=== PATIENT | female | born 1945 | race Hispanic/Latino ===

== ENCOUNTER → 2017-06-01 | Outpatient (CLI) | payer MEDICARE ==
[~2017-06-01] MED LIST: ACET-66 PO; ASPI-555 PO; CARV12.580 PO; GABA-531 PO; GLIP10TA9 PO; INSU100I21 SQ; LOSA25TA21 PO; MULT-1258 PO; OMEP20CA10 PO; PREG50 PO; ROSU20TA PO; victoza SQ; vitamin d PO
== END | disposition home or self-care (01) ==
LOC: RAH 13:11
PROVIDERS: ATTEND Family Medicine
DX: M41.85 Other forms of scoliosis, thoracolumbar region (principal); M54.16 Radiculopathy, lumbar region
CPT/HCPCS: 72100

== ENCOUNTER → 2017-08-06 | Outpatient (CLI) | payer MEDICARE | END | disposition home or self-care (01) | LOC: RAH 09:01 | PROVIDERS: ATTEND Family Medicine | DX: Z12.31 Encounter for screening mammogram for malignant neoplasm of breast (principal) | CPT/HCPCS: 77067 ==

== ENCOUNTER → 2017-08-16 | Outpatient (CLI) | payer MEDICARE | END | disposition home or self-care (01) | LOC: OIH 10:42 | PROVIDERS: ATTEND Family Medicine | DX: M47.894 Other spondylosis, thoracic region (principal) | CPT/HCPCS: 72070 ==

== ENCOUNTER 2017-09-30 21:42 | Emergency (ER) | payer MEDICARE ==
[2017-09-30] MEDS ORDERED: CEFTRIAXONE SODIUM 1 GM ONE (22:36)
[2017-09-30] MEDS ORDERED: LIDOCAINE HCL-MPF 1% 2ML VIAL ONE (22:36)
== END 2017-09-30 23:05 | disposition home or self-care (01) ==
LOC: EDH 21:42
DX: H00.025 Hordeolum internum left lower eyelid (principal); H00.035 Abscess of left lower eyelid; E78.5 Hyperlipidemia, unspecified; I10 Essential (primary) hypertension; E11.9 Type 2 diabetes mellitus without complications
CPT/HCPCS: 96372; 99283; J0696; J3490

== ENCOUNTER → 2017-10-17 | Outpatient (CLI) | payer MEDICARE | END | disposition home or self-care (01) | LOC: SHCH 14:46 | PROVIDERS: ATTEND Internal Medicine Cardiovascular Disease | DX: I10 Essential (primary) hypertension (principal); I67.9 Cerebrovascular disease, unspecified | CPT/HCPCS: 93306 ==

== ENCOUNTER → 2017-10-23 | Outpatient (CLI) | payer MEDICARE ==
[~2017-10-23] MED LIST changes: +REGADENOSON 0.4 MG/5 ML PF SYG IVP SCH
== END | disposition home or self-care (01) ==
LOC: SHCH 08:49
PROVIDERS: ATTEND Internal Medicine Cardiovascular Disease
DX: I10 Essential (primary) hypertension (principal); I67.9 Cerebrovascular disease, unspecified
CPT/HCPCS: 78452; 93017; 96374; A9500 ×2; J2785

== ENCOUNTER → 2018-07-12 | Outpatient (CLI) | payer MEDICARE, OTHER ==
[~2018-07-12] MED LIST changes: -LOSA25TA21 PO; +LOSA25TA41 PO; -REGADENOSON 0.4 MG/5 ML PF SYG IVP SCH
== END | disposition home or self-care (01) ==
LOC: RAH 07:51
PROVIDERS: ATTEND Family Medicine
DX: R10.11 Right upper quadrant pain (principal)
CPT/HCPCS: 76705

== ENCOUNTER → 2019-01-01 | Outpatient (CLI) | payer OTHER ==
[~2019-01-01] MED LIST changes: +OMEP-50 PO; -OMEP20CA10 PO; -ROSU20TA PO; +ROSU20TA23 PO
== END | disposition home or self-care (01) ==
LOC: RAH 07:19
PROVIDERS: ATTEND Family Medicine
DX: Z12.31 Encounter for screening mammogram for malignant neoplasm of breast (principal)
CPT/HCPCS: 77067

== ENCOUNTER → 2019-04-22 | Outpatient (CLI) | payer OTHER ==
[~2019-04-22] MED LIST changes: -OMEP-50 PO; +OMEP20CA12 PO
== END | disposition home or self-care (01) ==
LOC: RAH 14:40
PROVIDERS: ATTEND Internal Medicine
DX: N18.4 Chronic kidney disease, stage 4 (severe) (principal)
CPT/HCPCS: 76770

== ENCOUNTER → 2019-10-31 | Outpatient (CLI) | payer OTHER ==
[~2019-10-31] MED LIST changes: -ASPI-555 PO; +ASPI-556 PO
== END | disposition home or self-care (01) ==
LOC: RAH 09:40
PROVIDERS: ATTEND Internal Medicine
DX: K76.0 Fatty (change of) liver, not elsewhere classified (principal); Z90.5 Acquired absence of kidney
CPT/HCPCS: 76700

== ENCOUNTER → 2021-08-31 | Outpatient (CLI) | payer OTHER ==
[~2021-08-31] MED LIST changes: +REGADENOSON 0.4 MG/5 ML PF SYG IVP SCH
== END | disposition home or self-care (01) ==
LOC: RAH 09:12
PROVIDERS: ATTEND Internal Medicine
DX: R07.9 Chest pain, unspecified (principal); E11.65 Type 2 diabetes mellitus with hyperglycemia; I70.0 Atherosclerosis of aorta; G47.33 Obstructive sleep apnea (adult) (pediatric)
CPT/HCPCS: 78452; 93017; 96374; A9500 ×2; J2785

== ENCOUNTER → 2024-02-06 | Outpatient (CLI) | payer OTHER, MEDICARE ==
[~2024-02-06] MED LIST changes: +GLIP10TA16 PO; -GLIP10TA9 PO; -INSU100I21 SQ; +INSU100I22 SQ; -REGADENOSON 0.4 MG/5 ML PF SYG IVP SCH
== END | disposition home or self-care (01) ==
LOC: RAH 10:12
PROVIDERS: ATTEND Family Medicine
DX: I08.0 Rheumatic disorders of both mitral and aortic valves (principal); R79.89 Other specified abnormal findings of blood chemistry
CPT/HCPCS: 93306

== ENCOUNTER 2024-07-15 18:48 | Inpatient (IN) | payer MEDICARE ==
[~2024-07-15] VITALS: Ht 154.9 cm; Wt 93.8 kg
[~2024-07-15 18:48] MED LIST changes: -ACET-66 PO; -ASPI-556 PO; -CARV12.580 PO; +CARV6.25 PO; +CHOL100046 PO; +CLON0.1T2 PO; +EMPA10TA PO; +FURO20TA4 PO; -GABA-531 PO; -GLIP10TA16 PO; +HYDR25 PO; +INSLAN SQ; -INSU100I22 SQ; +LOPE2CAP PO; -LOSA25TA41 PO; -MULT-1258 PO; -OMEP20CA12 PO; -PREG50 PO; +ROSU10TA72 PO; -ROSU20TA23 PO; +SERT-439 PO; +SODI650T PO; +SODPOLY15G PO; +VITAMIN B12 PO; -victoza SQ; -vitamin d PO
--- NOTE | 2024-07-15 18:59 | ERN ---
ED Note History of Present Illness Stated Complaint: DIALYSIS ACCESS PROBLEM Chief Complaint: Dialysis Problem Time Seen by MD: 18:51 Dictation: PATIENT IS A 79-YEAR-OLD FEMALE HERE WITH COMPLAINTS OF ACCIDENTALLY PULLING OUT HER RIGHT CHEST PERMCATH THIS AFTERNOON WHILE SHE WAS TAKING A NAP. NO ACTIVE BLEEDING AT THIS TIME. PATIENT HAS A HISTORY OF ESRD WITH HEMODIALYSIS Sunday AND SUNDAY LAST HEMODIALYSIS WAS YESTERDAY. PATIENT OF DR. WINN. Allergies: Coded Allergies: No Known Drug Allergies (Verified Allergy, Unknown, 02/17/14) Home Meds Active Scripts Hydralazine HCl (Apresoline) 25 Mg Tab, 50 MG PO TID, #90 TAB Prov:IAN CORTEZ N GERMAN TEACHER 04/28/24 Clonidine HCl (Catapress) 0.1 Mg Tab, 0.1 MG PO Q6H PRN for IF SBP GREATER THAN 160, #30 TAB Prov:IAN CORTEZ N GERMAN TEACHER 04/28/24 Reported Medications [Vitamin B12] No Conflict Check, 1000 MCG PO DAILY 04/24/24 Cholecalciferol (Vitamin D3) (Vitamin D3) 25 Mcg (1000 Unit) Capsule, 1 CAP PO DAILY for 30 Days, #30 CAP 0 Refills 04/24/24 Sodium Polystyrene Sulfonate (Kayexalate 15 gm/60 ml) 15 Gram-20 Gram/60 Ml Oral.susp, 60 ML PO DAILY for 1 Day, #60 ML 0 Refills 04/24/24 Sodium Bicarbonate (Sodium Bicarbonate) 650 Mg Tablet, 1 TAB PO DAILY for indigestion for 30 Days, #60 TAB 0 Refills 04/24/24 Loperamide HCl (Imodium 2 mg Cap) 2 Mg Capsule, 2 MG PO DAILY PRN for DIARRHEA, CAP 04/24/24 Insulin Glargine,Hum.rec.anlog (Lantus) 100 Unit/Ml Inj, 50 UNITS SQ DAILY, ML 04/24/24 Furosemide (Furosemide) 20 Mg Tablet, 1 TAB PO DAILY for 30 Days, #30 TAB 0 Refills 04/24/24 Empagliflozin (Jardiance) 10 Mg Tablet, 1 TAB PO DAILY for 30 Days, #30 TAB 0 Refills 04/24/24 Carvedilol (Carvedilol) 6.25 Mg Tablet, 1 TAB PO BID for 30 Days, #60 TAB 0 Refills 04/24/24 Sertraline HCl (Sertraline HCl) 50 Mg Tablet, 1 TAB PO DAILY for 30 Days, #30 TAB 0 Refills 04/24/24 Rosuvastatin Calcium (Rosuvastatin Calcium) 10 Mg Tablet, 2 TAB PO DAILY for 30 Days, #30 TAB 0 Refills 04/24/24 Past Medical History Past Medical History: CHF, Depression, Diabetes-Type II, High Cholesterol, Hypertension, Renal Disese, Renal Failure Surgical History: None History: Not Applicable RN Note Reviewed/Agreed w/PFSH: Yes Review of System Dictation CONSTITUTIONAL: NEGATIVE EXCEPT FOR HPI HEAD/FACE: NEGATIVE EXCEPT FOR HPI EENT: NEGATIVE EXCEPT FOR HPI RESPIRATORY: NEGATIVE EXCEPT FOR HPI GASTROINTESTINAL/ABDOMINAL: NEGATIVE EXCEPT FOR HPI GENITOURINARY: NEGATIVE EXCEPT FOR HPI MUSCULOSKELETAL: NEGATIVE EXCEPT FOR HPI INTEGUMENTARY: NEGATIVE EXCEPT FOR HPI NEUROLOGICAL/PSYCH: NEGATIVE EXCEPT FOR HPI HEMATOLOGIC/LYMPHATIC: NEGATIVE EXCEPT FOR HPI ALL SYSTEMS NEGATIVE, EXCEPT NOTED ABOVE. 13 POINT REVIEW OF SYSTEMS ASSESSED AND ALL NEGATIVE EXCEPT FOR ABOVE. Initial Vital Sign VS Vital Signs Date Time Temp Pulse Resp B/P (MAP) Pulse Ox O2 Delivery O2 Flow Rate FiO2 07/15/24 18:50 98.2 63 20 141/62 99 Room Air Physical Exam Dictation VITAL SIGNS REVIEWED GENERAL APPEARANCE: ALERT, ORIENTED X 3, NO ACUTE DISTRESS, WELL DEVELOPED, NOURISHED. HEAD AND FACE: NON-TRAUMATIC. EYES: PERRL, PINK CONJUNCTIVAS, EYELID NO TRAUMA, ANTERIOR CHAMBER WITH ARCUS SENILIS. EARS: PINNAS INTACT AND NO SIGNS OF TRAUMA OR ERYTHEMA EAR CANALS CLEAR AND NO DISCHARGE TM NO ERYTHEMA NOSE: NO DISCHARGE, NO BLEEDING. OROPHARYNX: MOUTH NORMAL, TONGUE PINK, PHARYNX CLEAR,NO ERYTHEMA, TONSILS NO EXUDATES, NO ABSCESSES NOTED, MUCOUS MEMBRANE MOIST NECK: SUPPLE, NON-TENDER, NO THYROMEGALY, NO MASSES, NO JVD, NO BRUITS BREAST:DEFERRED CHEST:NO TENDERNESS, NO CREPITUS, NO PARADOXICAL MOVEMENT, NO RETRACTIONS LUNGS:CLEAR, WELL-VENTILATED, SYMMETRIC, NO RALES, NO WHEEZING, NO RHONCHI, NO STRIDOR, GOOD BREATH SOUNDS BILATERALLY HEART: REGULAR RATE, REGULAR RHYTHM, NO MURMUR, NO GALLOPS VASCULAR: NO PERIPHERAL EDEMA, ABDOMEN: SOFT, POSITIVE BOWEL SOUNDS, NONDISTENDED, NO GUARDING, NONTENDER, NO REBOUND, NO MASSES NO HEPATOMEGALY, NO SPLENOMEGALY, NO CORDERO'S SIGN, NO HERNIAS. RECTAL: DEFERRED GENITAL: DEFERRED NEUROLOGICAL: NORMAL SPEECH, MOTOR FUNCTION INTACT, SENSORY FUNCTION INTACT MUSCULOSKELETAL: NECK NONTENDER, FULL RANGE OF MOTION, BACK NONTENDER, FULL RANGE OF MOTION, EXTREMITIES: NONTENDER, FULL RANGE OF MOTION SKIN: COLOR PINK, DRY, NO TURGOR, NO RASH, NO LACERATIONS, NO ABRASIONS, NO CONTUSIONS. LYMPHATIC: DEFERRED Results (Laboratory/Radiology) Laboratory/Radiology Laboratory Tests Test 07/15/24 19:13 White Blood Count 8.7 K/uL (4.8-10.8) Red Blood Count 3.65 MIL/uL (4.00-5.50) L Hemoglobin 11.2 g/dL (12.0-16.0) L Hematocrit 34.3 % (36-48) L Mean Corpuscular Volume 94.0 fL (79-99) Mean Corpuscular Hemoglobin 30.7 pg (27.0-33.0) Mean Corpuscular Hemoglobin Concent 32.7 g/dL (32.0-36.0) Red Cell Distribution Width 12.7 % (11.0-15.5) Platelet Count 201 K/uL (130-400) Mean Platelet Volume 10.1 fL (7.5-10.5) Immature Granulocyte % (Auto) 0.5 % (0-1) Neutrophils (%) (Auto) 64.0 % (40.0-77.0) Lymphocytes (%) (Auto) 24.1 % (21.0-51.0) Monocytes (%) (Auto) 8.4 % (3.0-13.0) Eosinophils (%) (Auto) 2.4 % (0.0-8.0) Basophils (%) (Auto) 0.6 % (0.0-5.0) Neutrophils # (Auto) 5.6 K/uL (1.8-7.7) Lymphocytes # (Auto) 2.1 K/uL (1.0-4.8) Monocytes # (Auto) 0.7 K/uL (0.1-1.0) Eosinophils # (Auto) 0.21 K/uL (0.00-0.70) Basophils # (Auto) 0.05 K/uL (0.00-0.20) Absolute Immature Granulocyte (auto 0.04 K/uL (0-1) Nucleated Red Blood Cells 0.0 % (0.0-0.19) Prothrombin Time 10.2 SEC (9.6-11.6) Prothromb Time International Ratio 0.96 (0.85-1.15) Activated Partial Thromboplast Time 25.6 SEC (26.3-35.5) L Sodium Level 141 mmol/L (136-145) Potassium Level 3.6 mmol/L (3.5-5.1) Chloride Level 102 mmol/L (101-111) Carbon Dioxide Level 34 mmol/L (21-32) H Blood Urea Nitrogen 56 mg/dL (7-18) H Creatinine 4.2 mg/dL (0.5-1.0) H Glomerular Filtration Rate Calc 10 mL/min (>90) Random Glucose 117 mg/dL (70-105) H Total Calcium 8.3 mg/dL (8.5-10.1) L PORTABLE CHEST RADIOGRAPH INDICATION: SHORTNESS A BREATH/END-STAGE RENAL DISEASE COMPARISON: 04/25/2024 FINDINGS: Heart size is normal. Mild calcific plaque is present along the aortic arch ng. The pulmonary vascularity and wendy appear normal. No abnormal pulmonary parenchymal opacity or consolidation identified. No significant pleural effusion noted. No pneumothorax detected. IMPRESSION: No radiographic evidence for any acute cardiopulmonary process. Labs Reviewed?: Yes EKG Comment: EKG sinus bradycardia/ 58/GA [id number] millisecond/right bundle branch block ED Course ED Course Orders Procedure Category Date Status Time Pt And Ptt LAB 07/15/24 Complete 18:54 Cbc With Differential LAB 07/15/24 Complete 18:54 12 Lead Ekg Tracing- EKG 07/15/24 Complete Technical 18:54 Chest 1vw RAD 07/15/24 Resulted 18:54 Basic Metabolic Panel LAB 07/15/24 Complete 18:54 Vital Signs Date Time Temp Pulse Resp B/P (MAP) Pulse Ox O2 Delivery O2 Flow Rate FiO2 07/15/24 18:50 98.2 63 20 141/62 99 Room Air 2039/labs unremarkable and patient hemodynamically stable. We will follow up with hospitalist have patient admitted for PermCath replacement tomorrow X-ray 2044/spoke with Dr. REINOSO, reviewed EKG labs chest x-ray. He agreed to admit patient Medical Decision Making MDM MDM: Differential diagnosis: Electrolyte imbalance/dehydration/fluid overload/anemia of chronic renal failure Rationale: Tests considered and ordered secondary to shared decision making include: labs, ECG and radiology Previous outside records reviewed: Old ER visits. Reviewed Risk of complication and/or morbidity or mortality of patient management: None Medications-Per medication reconciliation Need for hospitalization: Patient does meet criteria for hospitalization. Patient will need admission for PermCath placement in the morning and possible dialysis Need for emergency major/minor surgery: No There are no social concerns with this patient. Prescription drug management Prescriptions will include symptomatic care Patient's prior external medical records from other ER visits were reviewed by me as indicated. Prior testing and results from previous visits were reviewed. Prior tests were taken into account with medical decision making and resource utilization, independent historian/historians were used to obtain complete medical history. I independently interpreted the test that were performed, results were reviewed by me and considered findings on radiology if ordered. Medical management and examination interpretation discussions were had by me with other qualified healthcare professionals as indicated for the patient's care. DX & DISP Disposition: Inpatient Decision to Admit Time: 20:43 Departure Impression: Primary Impression: Hemodialysis catheter dysfunction Additional Impressions: Anemia of chronic kidney failure, Uncontrolled diabetes mellitus, Hypocalcemia, ESRD (end stage renal disease) on dialysis Condition: Stable Referrals: SHAMAR BENJAMIN MD (PCP) Time of Disposition: 20:43 I have reviewed the case, and I agree with, Diagnosis and Plan ADELINE PACKER NP Jul 15, 2024 18:59
--- NOTE | 2024-07-15 19:08 | EKG ---
[facility] Test Date: 2024-07-15 Test Time: 19:06:51 Pat Name: CHEVY MILLS Department: ED Room: 330 Gender: F Welder Journeyman: [id number] : 1945 Requested By: ADELINE PACKER Order Number: [id number] Reading MD: Diego Mills Measurements Intervals Myton Rate: 58 P: -19 OR: 214 QRS: -161 QRSD: 143 T: 10 QT: 476 QTc: 469 Interpretive Statements Sinus rhythm Borderline prolonged OR interval Right bundle branch block Compared to ECG 04/23/2024 11:16:59 No significant changes Electronically Signed On 07-15-2024 23:39:13 CDT by Diego Mills Please click the below link to view image of tracing.
[2024-07-15 19:26] LABS: CREATININE 4.2 mg/dL (0.5-1.0); POTASSIUM 3.6 mmol/L (3.5-5.1)
[2024-07-15 19:29] LABS: INR 0.96 (0.85-1.15); PROTHROMBIN TIME 10.2 SEC (9.6-11.6)
[2024-07-15 19:30] LABS: PARTIAL THROMBOPLASTIN TIME 25.6 SEC (26.3-35.5)
[2024-07-15 19:34] LABS: BASOPHILS # (AUTO) 0.05 K/uL (0.00-0.20); BASOPHILS % (AUTO) 0.6 % (0.0-5.0); EOSINOPHILS # (AUTO) 0.21 K/uL (0.00-0.70); EOSINOPHILS % (AUTO) 2.4 % (0.0-8.0); HEMATOCRIT 34.3 % (36-48); IMMATURE GRANULOCYTE ABSOLUTE 0.04 K/uL (0-1); LYMPHOCYTES # (AUTO) 2.1 K/uL (1.0-4.8); LYMPHOCYTES % (AUTO) 24.1 % (21.0-51.0); MEAN CORPUSCULAR HEMOGLOBIN 30.7 pg (27.0-33.0); MEAN CORPUSCULAR HGB CONC 32.7 g/dL (32.0-36.0); MONOCYTES # (AUTO) 0.7 K/uL (0.1-1.0); MONOCYTES % (AUTO) 8.4 % (3.0-13.0); NEUTROPHILS # (AUTO) 5.6 K/uL (1.8-7.7); PLATELET COUNT (AUTO) 201 K/uL (130-400); RED BLOOD CELL COUNT(AUTO) 3.65 MIL/uL (4.00-5.50); RED CELL DISTRIBUTION WIDTH 12.7 % (11.0-15.5); WHITE BLOOD COUNT (AUTO) 8.7 K/uL (4.8-10.8)
--- NOTE | 2024-07-15 20:01 | HMCIMG ---
PORTABLE CHEST RADIOGRAPH INDICATION: SHORTNESS A BREATH/END-STAGE RENAL DISEASE COMPARISON: 04/25/2024 FINDINGS: Heart size is normal. Mild calcific plaque is present along the aortic arch ng. The pulmonary vascularity and wendy appear normal. No abnormal pulmonary parenchymal opacity or consolidation identified. No significant pleural effusion noted. No pneumothorax detected. IMPRESSION: No radiographic evidence for any acute cardiopulmonary process.
[2024-07-15] MEDS ORDERED: ondanSETRON 4MG TABLET PO PRN (21:00)
[2024-07-15] MEDS: INSULIN LISpro 100 UNIT/ML 3ML SQ SCH (21:00)
[2024-07-15] MEDS ORDERED: FOLI1TAB85 PO (22:20)
[2024-07-15] MEDS ORDERED: INSU3INS3 SQ (22:20)
[2024-07-15] MEDS ORDERED: CARV6.25 PO (22:20)
[2024-07-15] MEDS ORDERED: ROSU10TA72 PO (22:20)
[2024-07-15] MEDS ORDERED: HYDR50TA PO (22:20)
[2024-07-15] MEDS ORDERED: SERT-439 PO (22:20)
[2024-07-15 23:05] VITALS: BP 169/76; PULSE 59; RESP 17; TEMP 98.1
[2024-07-15 23:10] VITALS: O2SAT 96
[2024-07-16] VITALS (26 sets, daily range): BP systolic 84–171; BP diastolic 37–79; PULSE 61–88; RESP 16–20; TEMP 97.6–98.6; O2SAT 90–96
[2024-07-16 03:18] LABS: BASOPHILS # (AUTO) 0.03 K/uL (0.00-0.20); BASOPHILS % (AUTO) 0.4 % (0.0-5.0); EOSINOPHILS # (AUTO) 0.16 K/uL (0.00-0.70); EOSINOPHILS % (AUTO) 2.2 % (0.0-8.0); HEMATOCRIT 31.8 % (36-48); IMMATURE GRANULOCYTE ABSOLUTE 0.02 K/uL (0-1); LYMPHOCYTES # (AUTO) 1.8 K/uL (1.0-4.8); LYMPHOCYTES % (AUTO) 25.1 % (21.0-51.0); MEAN CORPUSCULAR HEMOGLOBIN 29.8 pg (27.0-33.0); MEAN CORPUSCULAR HGB CONC 32.4 g/dL (32.0-36.0); MEAN CORPUSCULAR VOLUME 91.9 fL (79-99); MONOCYTES # (AUTO) 0.6 K/uL (0.1-1.0); MONOCYTES % (AUTO) 8.8 % (3.0-13.0); NEUTROPHILS # (AUTO) 4.6 K/uL (1.8-7.7); NEUTROPHILS % (AUTO) 63.2 % (40.0-77.0); PLATELET COUNT (AUTO) 162 K/uL (130-400); RED BLOOD CELL COUNT(AUTO) 3.46 MIL/uL (4.00-5.50); RED CELL DISTRIBUTION WIDTH 12.8 % (11.0-15.5); WHITE BLOOD COUNT (AUTO) 7.3 K/uL (4.8-10.8)
[2024-07-16 03:33] LABS: CREATININE 4.1 mg/dL (0.5-1.0); MAGNESIUM 2.5 mg/dL (1.80-2.40); PHOSPHORUS 6.1 mg/dL (2.5-4.9); POTASSIUM 3.5 mmol/L (3.5-5.1)
[2024-07-16 03:42] LABS: HEMOGLOBIN A1C 7.3 % (4.0-6.0)
[2024-07-16] MEDS: carVEDIlol 6.25 MG TABLET PO SCH (09:00)
[2024-07-16] MEDS ORDERED: hydroCHLOROthiazide 25 MG TABLET PO SCH (09:00)
--- NOTE | 2024-07-16 10:19 | CONS ---
NEPHROLOGY CONSULTATION REASON FOR CONSULTATION: End-stage renal disease, requiring hemodialysis, dislodged dialysis catheter. HISTORY OF PRESENT ILLNESS: The patient is a 79-year-old female with recently initiated on hemodialysis secondary to end-stage renal disease from diabetic nephropathy, history of type 2 diabetes, hypertension, who presents after noticing dialysis catheter had been dislodged. The patient reports she was in her usual state of health, noticed blood stains on her clothes and noticed catheter had fallen out. Denies any trauma. Otherwise, the patient dialyzes Sunday, Sunday and Sunday and has been adherent with her treatments. Nephrology has been consulted for assistance with replacement of dialysis catheter as well as to proceed with dialysis during hospitalization. The patient was evaluated in her room this morning. Denies any blood loss from catheter insertion site. Otherwise, no fevers, chills, nausea, vomiting. REVIEW OF SYSTEMS: CONSTITUTIONAL: Denies any fevers, chills. EYES: Denies any changes to her vision. EARS: Denies any ear pain or discharge. NOSE AND THROAT: No congestion or sore throat. PULMONARY: Denies any cough, wheezing, shortness of breath. CARDIOVASCULAR: Denies any chest pain, palpitation, orthopnea or PND. GASTROINTESTINAL: Denies abdominal pain, nausea or vomiting. MUSCULOSKELETAL: Denies any erythematous joints or swollen joints. HEMATOLOGY: Acute blood loss after dialysis catheter was dislodged, but none currently. GENITOURINARY: Denies any gross hematuria. NEUROLOGIC: Denies any focal weakness or syncope. PSYCHIATRIC: Denies anxiety, depression. PAST MEDICAL HISTORY: End-stage renal disease, on hemodialysis, type 2 diabetes, hypertension, hyperlipidemia, depression, history of right nephrectomy, morbid obesity. PAST SURGICAL HISTORY: Nephrectomy dialysis catheter placement. FAMILY HISTORY: Positive for heart disease, diabetes, kidney failure. SOCIAL HISTORY: Nonsmoker, no alcohol use, has good family support. ALLERGIES: ADVERSE EVENTS REPORTED TO GABAPENTIN. CURRENT MEDICATIONS: Have been reviewed. PHYSICAL EXAMINATION: CURRENT VITAL SIGNS: Temperature 98.4, pulse 75, blood pressure 119/59, respiratory rate is 16, satting 91%, currently on room air. GENERAL: The patient is resting comfortably. She is alert, she is oriented, nontoxic appearing. HEENT: Anicteric sclerae. NECK: Supple. Flat JVD. CARDIAC: Regular rhythm and rate. CHEST: Clear. Right upper chest wall from previous dialysis catheter insertion, no evidence of bleeding, no discharge, no drainage ABDOMEN: Soft, nontender. EXTREMITIES: No edema. LABORATORY DATA: White count is 7.3, hemoglobin 10.3, hematocrit 31.8, platelet count is 162. Sodium 145, potassium is 3.5, chloride 106, bicarbonate is 31, BUN is 58, creatinine is 4.1, calcium is 8.4, hemoglobin A1c 7.3, phosphorus is 6.1, magnesium is 2.5. ASSESSMENT: * End-stage renal disease, on chronic hemodialysis. * Dislodged dialysis catheter. * Hypokalemia. * Hypertension. * History of type 2 diabetes. * History of right nephrectomy. * Hyperlipidemia. * Anemia of chronic kidney disease. * Hyperphosphatemia. PLAN: * End-stage renal disease. Plan for dialysis today per routine schedule. Once dialysis catheter was replaced increase to 3K bath, 2.5 calcium bath, UF 1 liter only as tolerated, 300 blood flow rate, 600 dialysate flow rate. The patient will continue routine dialysis throughout hospitalization every Sunday, Sunday and Sunday. Continue renal diet and fluid restriction. * Dislodged dialysis catheter. IR consult to replace a tunneled dialysis catheter. The patient has been referred for outpatient access placement. * Hypokalemia. Increase to 3K bath today and liberalize potassium in diet. * Hypertension. Resume home medications. Stable at this time. * Type 2 diabetes, moderate coverage diabetic diet. * Anemia of chronic kidney disease. We will hold Epogen at this time given stable labs. * Hyperphosphatemia. Resume binders, renal diet. TID: [id number] RECEIPT: [id number]
[2024-07-16] MEDS ORDERED: HEParin 1,000 UNIT VIAL ONE (11:29)
[2024-07-16] MEDS ORDERED: HEParin-NS 1,000 UNIT/500 ML 500 ML IV ONE (11:29)
[2024-07-16] MEDS ORDERED: LIDOCAINE HCL 400MG/20ML VIAL ONE (11:30)
[2024-07-16] MEDS ORDERED: hydrALAZine 20MG/ML VIAL ONE (11:58)
[2024-07-16] MEDS ORDERED: HEParin 5,000 UNIT VIAL IRRIG SCH (14:00)
[2024-07-16] MEDS: 0.9%NACL 1000ML 1,000 ML IV SCH (16:08)
--- NOTE | 2024-07-16 17:24 | PN ---
INFECTIOUS DISEASE PROGRESS NOTE SUBJECTIVE: [ ] PHYSICAL EXAM EYES: Anicteric. Pupils equal and reactive. HENT: No oral thrush seen, moist Oral mucosa NECK: Supple, no JVD or thyromegaly. LUNGS: Good air entry. No rales, no rhonchi. CARDIOVASCULAR: S1, S2 regular. No murmur heard. ABDOMEN: Soft, non tender, bowel sounds present, no organomegaly CENTRAL NERVOUS SYSTEM: Awake, alert, oriented x 3. No focal deficits. SKIN: No rashes, no swelling. LYMPHATICS: No peripheral lymphadenopathy MUSCULOSKELETAL: No joint swelling, erythema or tenderness. EXTREMITIES: No cyanosis or clubbing BACK: No deformity, no pressure ulcer. GENITOURINARY: No dysuria or hematuria LABS: Laboratory: Test 07/16/24 15:45 07/16/24 03:12 07/15/24 19:13 Range/Units Whole Blood Glucose 126 H 70-110 MG/DL White Blood Count 7.3 4.8-10.8 K/uL Red Blood Count 3.46 L 4.00-5.50 MIL/uL Hemoglobin 10.3 L 12.0-16.0 g/dL Hematocrit 31.8 L 36-48 % Mean Corpuscular Volume 91.9 79-99 fL Mean Corpuscular Hemoglobin 29.8 27.0-33.0 pg Mean Corpuscular Hemoglobin Concent 32.4 32.0-36.0 g/dL Red Cell Distribution Width 12.8 11.0-15.5 % Platelet Count 162 130-400 K/uL Mean Platelet Volume 10.3 7.5-10.5 fL Immature Granulocyte % (Auto) 0.3 0-1 % Neutrophils (%) (Auto) 63.2 40.0-77.0 % Lymphocytes (%) (Auto) 25.1 21.0-51.0 % Monocytes (%) (Auto) 8.8 3.0-13.0 % Eosinophils (%) (Auto) 2.2 0.0-8.0 % Basophils (%) (Auto) 0.4 0.0-5.0 % Neutrophils # (Auto) 4.6 1.8-7.7 K/uL Lymphocytes # (Auto) 1.8 1.0-4.8 K/uL Monocytes # (Auto) 0.6 0.1-1.0 K/uL Eosinophils # (Auto) 0.16 0.00-0.70 K/uL Basophils # (Auto) 0.03 0.00-0.20 K/uL Absolute Immature Granulocyte (auto 0.02 0-1 K/uL Nucleated Red Blood Cells 0.0 0.0-0.19 % Sodium Level 145 136-145 mmol/L Potassium Level 3.5 3.5-5.1 mmol/L Chloride Level 106 101-111 mmol/L Carbon Dioxide Level 31 21-32 mmol/L Blood Urea Nitrogen 58 H 7-18 mg/dL Creatinine 4.1 H 0.5-1.0 mg/dL Glomerular Filtration Rate Calc 11 >90 mL/min Random Glucose 99 70-105 mg/dL Hemoglobin A1c 7.3 H 4.0-6.0 % Estimated Average Glucose (eAG) 163 H 70-126 mg/dL Total Calcium 8.4 L 8.5-10.1 mg/dL Phosphorus Level 6.1 H 2.5-4.9 mg/dL Magnesium Level 2.50 H 1.80-2.40 mg/dL Prothrombin Time 10.2 9.6-11.6 SEC Prothromb Time International Ratio 0.96 0.85-1.15 Activated Partial Thromboplast Time 25.6 L 26.3-35.5 SEC GLEN BERMEO Jul 16, 2024 17:24
[2024-07-16] MEDS: acetaMINOPHEN 325 MG TAB PO PRN (17:47)
[2024-07-16] MEDS: Vitamin B Complex/Vit C/Folic Acid PO SCH (17:48)
--- NOTE | 2024-07-16 19:00 | NUR ---
NOT ABLE TO COMPLETE INITIAL ASSESSMENT TODAY. MEDICAL RECORD REVIEWED, NOTED THAT PATIENT HAD STARTED HD ON LAST ADMISSION IN MARCH. NOTED LIVES WITH SON. WILL ANTICIPATE DC IN AM WILL DEFER T NEXT CM IF ANY DC NEEDS ARISE. Addendum: 07/16/24 at 2040 by RAUL SMITH RN CM Amended: Links added.
--- NOTE | 2024-07-16 20:02 | HP ---
DATE OF SERVICE: 07/15/2024 HISTORY AND PHYSICAL PRESENTING COMPLAINT: Dislodged dialysis catheter. HISTORY OF PRESENT ILLNESS: A 79-year-old female with history of ESRD, on dialysis; diabetes mellitus; hypertension; and dyslipidemia, who presented to the hospital with dislodged dialysis catheter. The patient reports she accidentally noticed catheter falling out. The patient denied bleeding from the site. The patient has been compliant with dialysis session. Last dialysis was yesterday. The patient now brought to the Emergency Room due to need for dialysis catheter replacement. No cough, no hemoptysis. Denied headache and dizziness. No slurred speech or limb weakness. PAST MEDICAL HISTORY: * ESRD, on dialysis. * Diabetes mellitus. * Hypertension. * Dyslipidemia. * Depression. * Obesity. PAST SURGICAL HISTORY: * Right nephrectomy. * Permacath placement. ALLERGIES: No known drug allergy. MEDICATIONS: Reviewed. SOCIAL HISTORY: No alcohol, tobacco or illicit drugs. FAMILY HISTORY: Noncontributory. REVIEW OF SYSTEMS: Greater than 10 systems were reviewed and negative except as documented above. PHYSICAL EXAMINATION: GENERAL: Elderly female, awake, not in distress. VITAL SIGNS: Temperature 98.1, pulse 73, respirations 17, BP 157/70. EYES: No icterus. Pupils equal and reactive. HENT: No oral thrush seen. Moist oral mucosa. NECK: Supple, no JVD or thyromegaly. LUNGS: Good air entry. No rales, no rhonchi. CARDIOVASCULAR: S1, S2 regular. No murmur heard. ABDOMEN: Full, soft, obese, nontender. Bowel sounds present. CENTRAL NERVOUS SYSTEM: Awake, alert and oriented x 3. No focal deficits. SKIN: No rashes, no itchiness. LYMPHATIC: No peripheral lymphadenopathy. BACK: No deformity, no pressure ulcer. HEMATOLOGIC: No bleeding or petechial lesion seen. MUSCULOSKELETAL: No joint swelling, erythema or tenderness. VASCULAR: No ischemia or gangrene of extremities. LABORATORY DATA: Sodium 141, potassium 3.6, BUN 56, creatinine 4.2. WBC 5.7, hemoglobin 11.2, platelets 201. ASSESSMENT: A 79-year-old female presenting with dislodged dialysis catheter. CURRENT PROBLEMS: * Dislodged permacath. * ESRD, on dialysis. * Hypertension. * Diabetes mellitus. * Obesity. * Anemia. PLAN: * The patient admitted to medical floor telemetry. * The patient will need replacement of dialysis catheter by IR. * Nephrology evaluation. * Monitor electrolytes and correct as needed. * Continue pain management. * ADA diet. * Insulin sliding scale. * Home medication will be consulted and correct as needed. TID: [id number] RECEIPT: [id number] [facility]
[2024-07-16] MEDS: SERTraline HCL 50 MG TABLET PO SCH (20:30)
[2024-07-16] MEDS: atorVAStatin 40 MG TABLET PO SCH (20:31)
--- NOTE | 2024-07-16 20:32 | NUR ---
CHART REVIEWED, NOTED PATIENT WAS HERE FOR A PERMACATH REPLACEMENT. ANTICIPATING DISCHARGE AFTER HD
--- NOTE | 2024-07-16 21:35 | NUR ---
FALL: PT STATES SHE USED BED ALARM TO ASK FOR ASSISTANCE TO THE RR BUT NOBODY CAME AND GOT UP BY HERSELF. PT WENT TO THE RR AND GOT DIZZY AND WEAK TO LOWER EXTREMITIES AND FELL BUT DOES NOT REMEMBER WHERE OR IF SHE HIT HERSELF. PT HAD UNWITNESSED FALL IN BATHROOM, GOT UP BY HERSELF AND WENT BACK TO BED. PT NOTIFIED PATTERN GRADER SUPERVISOR AND PATTERN GRADER SUPERVISOR NOTIFIED PRIMARY NURSE. POST FALL ASSESSMENT DONE, NO LACERATIONS/FRACTURES/NEUROLOGICAL PROBLEMS IDENTIFIED. DR. BRAR NOTIFIED OF UNWITNESSED FALL, NEW ORDERS GIVEN AND CARRIED OUT. PT INSTRUCTED AGAIN NOT TO GET UP WITHOUT ANY NURSING STAFF PRESENT. S/R UP X 3, BED ALARM IN PLACE.
--- NOTE | 2024-07-16 21:40 | PR ---
CLINICAL HISTORY: Renal failure. TECHNIQUE: After obtaining informed consent, the patient was placed on the angiography table and prepped and draped in the usual sterile fashion. Local anesthesia was achieved with 1% lidocaine solution. Ultrasound guidance, access obtained into the right external jugular vein. A guidewire was passed centrally. The tract was dilated over the wire and a peel-away sheath was advanced over the wire. Attention was then turned to the chest wall. Small skin incision was made. A tunnel was created between the incision site and the venotomy site. Catheter was passed through the tunnel. Using peel-away sheath, the tip was advanced into the right atrium under fluoroscopic observation. Lumens were flushed demonstrated patency. The catheter was secured into place, covered with clean sterile dressing and the patient was discharged from the department in stable condition. IMPRESSION: Uncomplicated ultrasound and fluoroscopy-guided tunneled hemodialysis catheter placement. Catheter ready for immediate use. FLUOROSCOPY TIME: 30 seconds. Thank you for allowing us to participate in the care of your patient. TID: [id number] RECEIPT: [id number]
--- NOTE | 2024-07-16 22:28 | HMCIMG ---
CT HEAD/BRAIN W/O CONTRAST HISTORY: Status post fall COMPARISON: None TECHNIQUE: Multiple sequential axial images of the head were obtained from the base of the skull through vertex. Patient was not given contrast through intravenous route. FINDINGS: The ventricles and extraventricular CSF spaces are dilated consistent with cerebral atrophy. Nonspecific white matter changes seen. 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 There is no midline shift, mass effect or herniation. No acute intracranial bleed is seen. There are bilateral ethmoid, maxillary and sphenoid sinusitis with mucoperiosteal thickening. IMPRESSION: 1. No acute intracranial bleed is seen. 2. Atrophy with white matter changes. Sinusitis. CT was performed with one or more following dose reduction techniques: automated exposure control, adjustment of the mA and kv according to patient's size, or use of a iterative reconstruction technique.
--- NOTE | 2024-07-16 23:57 | PN ---
MEDICAL FOLLOWUP NOTE DATE OF SERVICE: 07/16/2024. SUBJECTIVE: The patient is seen and examined at bedside today. The patient has no fever or chills. The patient's PermCath was placed and tolerated dialysis. No sore throat, rhinorrhea or earache. No bleeding tendency. No rashes or itchiness. PHYSICAL EXAMINATION: VITAL SIGNS: Temperature 96.9. EYES: No icterus. Pupils equal and reactive. HENT: No oral thrush seen. Moist oral mucosa. NECK: Supple, no JVD or thyromegaly. LUNGS: Good air entry. No rales, no rhonchi. CARDIOVASCULAR: S1, S2 regular. No murmur heard. ABDOMEN: Full, soft, nontender. Bowel sound is present. CENTRAL NERVOUS SYSTEM: Awake, alert, oriented x 3. No focal deficits. SKIN: No rashes, no itchiness. LYMPHATIC: No peripheral lymphadenopathy. BACK: No deformity, no pressure ulcer. VASCULAR: No ischemia or gangrene of extremities. HEMATOLOGIC: No bleeding or petechial lesions present. ASSESSMENT: A 79-year-old female admitted with dislodged dialysis catheter. Current problems include: * Dislodged PermCath, status post ____. * End-stage renal disease, on dialysis. * Diabetes mellitus. * Hypertension. PLAN: * Continue dialysis. * Continue antihypertensive. * Continue nutritional support. * Continue pain management. * Monitor electrolytes. * Continue antiemetic. TID: [id number] RECEIPT: [id number]
[2024-07-17] VITALS: BP 103/51; PULSE 79; RESP 20; TEMP 97.8
[2024-07-17 04:00] VITALS: BP 136/59; PULSE 62; RESP 20; TEMP 98
[2024-07-17 05:09] LABS: CREATININE 3.7 mg/dL (0.5-1.0); MAGNESIUM 2.3 mg/dL (1.80-2.40); POTASSIUM 3.8 mmol/L (3.5-5.1)
[2024-07-17 05:27] LABS: BASOPHILS # (AUTO) 0.03 K/uL (0.00-0.20); BASOPHILS % (AUTO) 0.3 % (0.0-5.0); EOSINOPHILS % (AUTO) 1.1 % (0.0-8.0); HEMATOCRIT 32.2 % (36-48); IMMATURE GRANULOCYTE ABSOLUTE 0.04 K/uL (0-1); LYMPHOCYTES # (AUTO) 1.9 K/uL (1.0-4.8); LYMPHOCYTES % (AUTO) 21.1 % (21.0-51.0); MEAN CORPUSCULAR HEMOGLOBIN 30.4 pg (27.0-33.0); MEAN CORPUSCULAR HGB CONC 32.6 g/dL (32.0-36.0); MEAN CORPUSCULAR VOLUME 93.3 fL (79-99); MONOCYTES # (AUTO) 0.8 K/uL (0.1-1.0); MONOCYTES % (AUTO) 8.7 % (3.0-13.0); NEUTROPHILS # (AUTO) 6.3 K/uL (1.8-7.7); NEUTROPHILS % (AUTO) 68.4 % (40.0-77.0); PLATELET COUNT (AUTO) 156 K/uL (130-400); RED BLOOD CELL COUNT(AUTO) 3.45 MIL/uL (4.00-5.50); RED CELL DISTRIBUTION WIDTH 12.6 % (11.0-15.5); WHITE BLOOD COUNT (AUTO) 9.2 K/uL (4.8-10.8)
--- NOTE | 2024-07-17 06:20 | NUR ---
BED ALARM: BED ALARM GOING OFF, PT WITH 2 FEET OFF THE BED. PT REMINDED NOT TO GET UP BY HERSELF, NURSING STAFF NEED TO ASSIST HER TO THE BATHROOM DUE TO UNWITNESSED FALL SHE CLAIMED TO HAVE LAST NIGHT. PT STATES, "I DID NOT FALL, THAT WAS LAST WEEK." S/R UP X 3, BED ALARM IN PLACE.
[2024-07-17 08:00] VITALS: BP 161/76; PULSE 79; RESP 18; TEMP 98.5; O2SAT 90
[2024-07-17 08:25] VITALS: BP 161/76
--- NOTE | 2024-07-17 10:50 | NUR ---
PATIENT DISCHARGED HOME WITH BELONGINGS AND COPY OF DISCHARGE COPY WITH FOLLOW UP APPOINTMENTS
[2024-07-17] MEDS ORDERED: HYDR50TA37 PO (11:45)
--- NOTE | 2024-07-17 19:54 | DS ---
Discharge Summary Hospital Course This is a 79-year-old female patient with past medical history of end-stage renal disease, on dialysis, diabetes mellitus and hypertension who admitted to the hospital with a dislodged dialysis catheter. Per patient's report the catheter accidentally came out. No bleeding on presentation and the hemoglobin is 11.2. Patient was admitted to have the dialysis catheter replaced and was placed on 07/16/2024. Patient was dialyzed yesterday and 920 mL was removed. Patient has remained afebrile with a WBC within normal level. The hemoglobin also stable at 10.5. We will discharge patient to home today and have her follow up with her PCP in 3-5 days. ASSESSMENT: Dislodged PermCath, status post replacement on 07/16/2024. End-stage renal disease, on dialysis. Diabetes mellitus. Hypertension. PLAN: Discharge patient to home today. Continue same home medications. Follow up with PCP in 3-5 days. This case was reviewed and discussed with my supervising physician and the above assessment and plan was formulated and agreed upon. GLEN BERMEO ANODIZE MACHINE OPERATOR Jul 17, 2024 19:54
== END 2024-07-17 12:20 | disposition home or self-care (01) | DRG 674 ==
LOC: EDH 18:48 → EDHIP 20:48 → 3AH 22:04
PROVIDERS: ADMIT Internal Medicine Infectious Disease; ATTEND Internal Medicine Infectious Disease
PROC: 0JH63XZ Insertion of Tunneled Vascular Access Device into Chest Subcutaneous Tissue and Fascia, Percutaneous Approach (ICD-10-PCS; principal; 2024-07-16)
PROC: 02H633Z Insertion of Infusion Device into Right Atrium, Percutaneous Approach (ICD-10-PCS; 2024-07-16)
PROC: B5181ZA Fluoroscopy of Superior Vena Cava using Low Osmolar Contrast, Guidance (ICD-10-PCS; 2024-07-16)
PROC: 5A1D70Z Performance of Urinary Filtration, Intermittent, Less than 6 Hours Per Day (ICD-10-PCS; 2024-07-16)
PROC: B548ZZA Ultrasonography of Superior Vena Cava, Guidance (ICD-10-PCS; 2024-07-16)
DX: T82.42XA Displacement of vascular dialysis catheter, initial encounter (principal); I13.2 Hypertensive heart and chronic kidney disease with heart failure and with stage 5 chronic kidney disease, or end stage renal disease; N18.6 End stage renal disease; E11.22 Type 2 diabetes mellitus with diabetic chronic kidney disease; Z99.2 Dependence on renal dialysis; E87.6 Hypokalemia; E78.00 Pure hypercholesterolemia, unspecified; D63.1 Anemia in chronic kidney disease; E66.01 Morbid (severe) obesity due to excess calories; F32.A Depression, unspecified; Z90.5 Acquired absence of kidney; Z83.3 Family history of diabetes mellitus; E83.39 Other disorders of phosphorus metabolism; I50.9 Heart failure, unspecified; I45.10 Unspecified right bundle-branch block; E83.51 Hypocalcemia; Y83.8 Other surgical procedures as the cause of abnormal reaction of the patient, or of later complication, without mention of misadventure at the time of the procedure; Y92.89 Other specified places as the place of occurrence of the external cause; Z88.8 Allergy status to other drugs, medicaments and biological substances
CPT/HCPCS: 36415; 36558; 70450; 71045; 77001; 80048; 82948; 83036; 83735; 84100; 85025; 85610; 85730; 86704; 86706; 87340; 90935; 93005; 99285; C1750; G0378; J0360; J1644; J3490; C1894

== ENCOUNTER 2024-08-08 06:44 | Day surgery (SDC) | payer MEDICARE ==
[2024-08-05 14:15] VITALS: BP 188/94; PULSE 72; RESP 18; TEMP 97.9
[2024-08-05 14:15] LABS: BASOPHILS # (AUTO) 0.02 K/uL (0.00-0.20); BASOPHILS % (AUTO) 0.2 % (0.0-5.0); EOSINOPHILS # (AUTO) 0.21 K/uL (0.00-0.70); EOSINOPHILS % (AUTO) 2.2 % (0.0-8.0); HEMATOCRIT 35.7 % (36-48); IMMATURE GRANULOCYTE ABSOLUTE 0.04 K/uL (0-1); LYMPHOCYTES # (AUTO) 2.2 K/uL (1.0-4.8); LYMPHOCYTES % (AUTO) 22.7 % (21.0-51.0); MEAN CORPUSCULAR HEMOGLOBIN 30.1 pg (27.0-33.0); MEAN CORPUSCULAR HGB CONC 31.7 g/dL (32.0-36.0); MEAN CORPUSCULAR VOLUME 95.2 fL (79-99); MONOCYTES # (AUTO) 0.7 K/uL (0.1-1.0); MONOCYTES % (AUTO) 7.6 % (3.0-13.0); NEUTROPHILS # (AUTO) 6.5 K/uL (1.8-7.7); NEUTROPHILS % (AUTO) 66.9 % (40.0-77.0); PLATELET COUNT (AUTO) 204 K/uL (130-400); RED BLOOD CELL COUNT(AUTO) 3.75 MIL/uL (4.00-5.50); RED CELL DISTRIBUTION WIDTH 12.8 % (11.0-15.5); WHITE BLOOD COUNT (AUTO) 9.7 K/uL (4.8-10.8)
[2024-08-05 14:28] LABS: INR 0.96 (0.85-1.15); PROTHROMBIN TIME 10.2 SEC (9.6-11.6)
[2024-08-05 14:30] LABS: PARTIAL THROMBOPLASTIN TIME 25.4 SEC (26.3-35.5)
--- NOTE | 2024-08-05 15:06 | EKG ---
[facility] Test Date: 2024-08-05 Test Time: 14:03:33 Pat Name: CHEVY MILLS Department: [facility] Room: Gender: Female Health Education Coordinator: [id number] : 1945 Requested By: MADI THAPA Order Number: [id number] Reading MD: Measurements Intervals [place] Rate: 66 P: 2 [place]: 166 QRS: -168 QRSD: 141 T: 36 QT: 463 QTc: 485 Interpretive Statements Sinus rhythm Right bundle branch block No previous ECG available for comparison Please click the below link to view image of tracing.
--- NOTE | 2024-08-07 10:54 | NUR ---
RE: EKG REPORTED EKG RESULTS TO DR CUNNINGHAM, NO NEW ORDERS RECEIVED. (OLD EKG IN CHART)
[~2024-08-08] VITALS: Ht 152.4 cm; Wt 131.1 kg
[2024-08-08] VITALS (16 sets, daily range): BP systolic 100–159; BP diastolic 43–71; PULSE 65–78; RESP 14–22; TEMP 97.2–97.6
[~2024-08-08 06:44] MED LIST changes: -CHOL100046 PO; -CLON0.1T2 PO; -EMPA10TA PO; +FOLI1TAB85 PO; -FURO20TA4 PO; -HYDR25 PO; +HYDR25TA67 PO; -INSLAN SQ; +INSU3INS3 SQ; -LOPE2CAP PO; -ROSU10TA72 PO; -SODI650T PO; -SODPOLY15G PO; -VITAMIN B12 PO
[2024-08-08 07:20] LABS: CREATININE 4.1 mg/dL (0.5-1.0); POTASSIUM 4.2 mmol/L (3.5-5.1)
[2024-08-08] MEDS ORDERED: ALBUMIN (HUMAN) 5% 250 ML IV ONE (07:21)
[2024-08-08] MEDS ORDERED: ketaMINE 50MG/ML SYRINGE 50 MG/ML DISP.SYRIN ONE (07:21)
[2024-08-08] MEDS ORDERED: SUCCINYLCHOLINE CHLORIDE 20 MG/ML 10 ML VIAL ONE (07:23)
[2024-08-08] MEDS ORDERED: LIDOCAINE PF 100MG/5ML (2%) SYRINGE 5ML ONE (07:23)
[2024-08-08] MEDS ORDERED: proPOFol 10 MG/ML 20ML VIAL IV ONE (07:23)
[2024-08-08] MEDS ORDERED: GLYCOPYRROLATE 0.2 MG/ML 5 ML VIAL ONE (07:23)
[2024-08-08] MEDS ORDERED: dexaMETHasone SOD PHOSPHATE 10MG/ML 1ML VIAL ONE (07:23)
[2024-08-08] MEDS ORDERED: NEOSTIGMINE METHYLSULFATE 1MG/ML IV ONE (07:24)
[2024-08-08] MEDS ORDERED: rocuRONium bROMide 10MG/1ML 5ML VL ONE (07:24)
[2024-08-08] MEDS ORDERED: FENTanyl CITRate PF 50 MCG/1 ML 2ML VIAL ONE (07:24)
[2024-08-08] MEDS ORDERED: ondanSETRON 4MG INJ ONE (07:24)
[2024-08-08] MEDS ORDERED: MIDAZOLAM HCL 1 MG/ML 2ML VIAL ONE (07:25)
[2024-08-08] MEDS ORDERED: ePHEDrine SULFate 50 MG/ML AMPULE ONE (07:31)
[2024-08-08] MEDS ORDERED: EPINEPHrine PF 1MG (1:1,000) 1 MG/ML AMP ONE (07:32)
[2024-08-08] MEDS ORDERED: BUPIvacaine/PF 0.5% 30ML VIAL ONE (07:51)
[2024-08-08] MEDS ORDERED: HEParin-NS 1,000 UNIT/500 ML 500 ML IV ONE (07:51)
[2024-08-08] MEDS: 0.9% NACL 500ML IV.SOLN 500 ML IV ONE (08:00)
[2024-08-08] MEDS: ceFAZolin SODIUM 1 GM VIAL ONE (08:00)
[2024-08-08] MEDS: ceFAZolin SODIUM 2 GM VIAL ONE (08:00)
[2024-08-08] MEDS ORDERED: SUGAMMADEX SODIUM 200 MG/2 ML VIAL IV ONE (08:22)
[2024-08-08] MEDS ORDERED: phenylEPHRINE HCL 10 MG/ML 1ML VIAL IV ONE ×2 (08:55→09:22)
[2024-08-08] MEDS: ceFAZolin SODIUM 2 GM VIAL IVPB ONE (08:56)
[2024-08-08] MEDS: IpraTROPium/alBUTERol SULFATE 3 ML SOLUTION IH ONE (11:48)
[2024-08-08] MEDS ORDERED: IpraTROPium/alBUTERol SULFATE 3 ML SOLUTION IH ONE (12:00)
[2024-08-08] MEDS ORDERED: IBUP-2077 PO (12:11)
--- NOTE | 2024-08-08 12:48 | NUR ---
Full and complete discharge instructions given to Patient and Family both verbally and in writing. All questions answered. Tolerating PO fluids well. Voiced understanding to SURGICAL procedure and follow up. Neurovascularly intact. Auscultation and Bruit to LUE AVF site. PIV removed with catheter tip intact. Qyig1hm ball provided. W\C to POV with Family to home.
--- NOTE | 2024-08-08 17:01 | OP ---
Operative Note: DATE OF PROCEDURE: 08/08/24 SURGEON: MADI THAPA MD STOCKLAYER: [] PREOPERATIVE DIAGNOSIS: End-stage renal disease POSTOPERATIVE DIAGNOSIS: End-stage renal disease PROCEDURE: Left upper extremity brachiobasilic fistula creation with transposition INDICATIONS: Patient needs access for dialysis ESTIMATED BLOOD LOSS: 15cc Devices left in place: None Anesthesia: General endotracheal DESCRIPTION OF PROCEDURE: Patient is brought to the operating room placed on the operating table in a supine position. Once general endotracheal anesthesia is achieved patient's left upper extremity up to the axilla is prepped and draped in sterile fashion. Using ultrasound we identified the basilic vein and confirmed that it was adequate for fistula creation. We then proceeded to create a longitudinal incision medially in the arm and dissected down through the subcutaneous tissue to expose the basilic vein. We exposed that for a length of about 15 cm down to the antecubital fossa. And clipped all its branches. We then proceeded to create a transverse incision at the antecubital fossa. Expose the brachial artery for a length of about 4 cm and obtained proximal and distal control. We then asked anesthesia to give 5000 units of heparin. I then proceeded to clamp the basilic vein proximally and distally divided it at the level of the elbow. And suture ligated the distal and end. We then proceeded to to dilate the vein with heparinized saline and ensured that there were no le aks from all the branches were clipped or sutured. We then proceeded to use a [place] tunneler to tunnel the vein medially and brought it out through the antecubital fossa incision. I then clamped the brachial artery proximally and distally. I then proceeded to create a end-to-side anastomosis between the brachial artery and the basilic vein at the antecubital fossa with 6-0 Prolene. I then opened up the clamp to the vein first and that there to be backflow. And then proceeded to open the proximal clamp on the artery emanated flush out the anastomosis and then open the distal clamp. I then proceeded to suture the anastomosis. We ensured with a Doppler that we had a strong palmar arch pulse at the left hand and ulnar and radial pulses as well. We had a good thrill throughout the fistula. We then closed both incisions with 2 layers with subcutaneous tissue being closed with 2-0 Vicryl in running fashion and the skin was closed with 4-0 Monocryl in running fashion. Dermabond is applied over top. Skin dressings were applied over top patient tolerated the procedure well all counts were correct x2 at the end of the procedure. MADI THAPA MD Aug 08, 2024 17:01
== END 2024-08-08 12:40 | disposition home or self-care (01) ==
LOC: DAH 06:44
PROVIDERS: ATTEND Student in an Organized Health Care Education/Training Program
DX: I12.0 Hypertensive chronic kidney disease with stage 5 chronic kidney disease or end stage renal disease (principal); N18.6 End stage renal disease; K21.9 Gastro-esophageal reflux disease without esophagitis; I45.10 Unspecified right bundle-branch block; F41.9 Anxiety disorder, unspecified; F32.A Depression, unspecified; Z79.899 Other long term (current) drug therapy
CPT/HCPCS: 85025; 85610; 85730; 36415 ×2; 93005; 36819; 01844; 80048; 82948 ×2; 94640; A4663; P9045; J7040; J3010; J0690 ×3; J1100; J0330; J3490 ×4; J2003; J0171; J2250; J2704; J2405; J2710; J0665; J1644; J2371 ×2; A4649 ×2; C1713 ×2; A4215; A4213; A4222; A4221; A4216; A4223 ×2; A4600

== ENCOUNTER 2025-03-06 10:37 | Emergency (ER) | payer MEDICARE, MEDICAID ==
[~2025-03-06] VITALS: Ht 160 cm; Wt 99.8 kg
[~2025-03-06 10:37] MED LIST changes: +IBUP-2077 PO
--- NOTE | 2025-03-06 10:59 | ERN ---
General Chief Complaint: Rectal Bleed Stated Complaint: RECTUM PAIN Time Seen by MD: 10:42 History of Present Illness Initial Comments This is a 79-year-old female with a past medical history of hypertension, diabetes mellitus, dementia and chronic renal disease on hemodialysis 3 times a week presented with rectal pain since yesterday evening, associated with single episode of vomiting this morning and diffuse abdominal discomfort. She has a history of constipation and passes minimal stool. She denies rectal bleeding, black stool or mucus discharge. No prior similar episodes. Allergies: Coded Allergies: No Known Drug Allergies (Verified Allergy, Unknown, 02/17/14) gabapentin (Unverified Allergy, Unknown, 03/06/25) Home Meds Reported Medications Ibuprofen (Ibuprofen 800 mg Tab) 800 Mg Tab, 1 TAB PO TID for pain for 10 Days, #30 TAB 0 Refills 08/08/24 Carvedilol (Carvedilol) 6.25 Mg Tablet, 6.25 MG PO BID, TAB 08/05/24 Sertraline HCl (Sertraline HCl) 50 Mg Tablet, 50 MG PO HS, TAB 08/05/24 Insulin Glargine,Hum.rec.anlog (Lantus Solostar) 100 Unit/Ml (3 Ml) Insuln.pen, 50 UNIT SQ DAILY PRN for BG>150, SYRINGE 08/05/24 Vit B Cmplx 3/FA/Vit C/Biotin (Caroline-Nancy Rx Tablet) 1 Mg-60 Mg-300 Mcg Tablet, 1 EACH PO DAILY, TAB 08/05/24 Hydralazine HCl (Hydralazine HCl) 25 Mg Tablet, 25 MG PO BID, TAB 08/05/24 Past Medical History Past Medical History: Diabetes-Type II, High Cholesterol, Hypertension Medical History Other: ESRD Past Surgical History: Hysterectomy, LAVA Surgical History Other: CARDIAC STENTS, NEPHRECTOMY Female( History) History: Not Applicable ROS Dictation REVIEW OF SYSTEMS CONSTITUTIONAL: Denies fever, chills, or night sweats. No unintentional weight loss reported. NEUROLOGICAL: . Denies headache, amaurosis fugax sensory deficit, vertigo/spinning sensation, gait abnormalities, or tremors. CARDIOVASCULAR: Denies any exertional angina, dyspnea on exertion, orthopnea, paroxysmal nocturnal dyspnea, palpitations, life-threatening arrhythmias, claudication. PULMONARY: Denies chest pain. Denies any shortness of breath, GASTROINTESTINAL: Complains of rectal pain and generalized abdominal discomfort: 1 episode of vomiting this morning: Denies diarrhea, constipation, melena or hematochezia. GENITOURINARY: Denies frequency, urgency, nocturia, hematuria or incontinence. Physical Exam Physical Exam Dictation PHYSICAL EXAM GENERAL APPEARANCE: The patient is awake, alert, and oriented, in no acute cardiopulmonary distress. NEUROLOGICAL: Alert and oriented x3, moving all extremities spontaneously. No focal deficit. HEENT: Face is symmetric. Pupils are equal and reactive. Extraocular movements are intact. CHEST: Normal chest expansion. LUNGS: Absence of any rales, rhonchi or any wheezing. CARDIOVASCULAR: Regular. S1 and S2 normal. No appreciable rubs, murmurs or gallops. ABDOMEN: Soft, nontender, nondistended. No guarding and rigidity. RECTAL EXAM: Has hemorrhoids. No rectal prolapse, fissure, abscess. No tenderness. EXTREMITIES: No cyanosis, clubbing or edema. Results Laboratory and Microbiology Lab and Micro Result Laboratory Tests Test 03/06/25 11:52 03/06/25 12:30 White Blood Count 8.3 K/uL (4.8-10.8) Red Blood Count 3.19 MIL/uL (4.00-5.50) L Hemoglobin 10.0 g/dL (12.0-16.0) L Hematocrit 31.4 % (36-48) L Mean Corpuscular Volume 98.4 fL (79-99) Mean Corpuscular Hemoglobin 31.3 pg (27.0-33.0) Mean Corpuscular Hemoglobin Concent 31.8 g/dL (32.0-36.0) L Red Cell Distribution Width 12.4 % (11.0-15.5) Platelet Count 118 K/uL (130-400) L Mean Platelet Volume 10.2 fL (7.5-10.5) Nucleated Red Blood Cells 0.0 % (0.0-0.19) Sodium Level 142 mmol/L (136-145) Potassium Level 3.8 mmol/L (3.5-5.1) Chloride Level 101 mmol/L (101-111) Carbon Dioxide Level 33 mmol/L (21-32) H Blood Urea Nitrogen 38 mg/dL (7-18) H Creatinine 4.5 mg/dL (0.5-1.0) H Glomerular Filtration Rate Calc 9 mL/min (>90) Random Glucose 178 mg/dL (70-105) H Total Calcium 8.1 mg/dL (8.5-10.1) L Urine Color YELLOW (YELLOW) Urine Appearance CLEAR (CLEAR) Urine pH 7.5 (5.0-8.0) Urine Specific [place] 1.019 (1.001-1.031) Urine Protein 300 mg/dL (NEGATIVE) H Urine Glucose (UA) 300 mg/dL (NEGATIVE) H Urine Ketones NEGATIVE mg/dL (NEGATIVE) Urine Occult Blood NEGATIVE (NEGATIVE) Urine Nitrate NEGATIVE (NEGATIVE) Urine Bilirubin NEGATIVE mg/dL (NEGATIVE) Urine Urobilinogen 0.2 mg/dL (0.2-1.0) Urine Leukocyte Esterase NEGATIVE [place]/uL Urine RBC 2-5 /HPF (0-1) H Urine WBC 2-5 /HPF (0-1) H Urine Squamous Epithelial Cells RARE /HPF (0-2) Urine Bacteria None /HPF (None Seen) EKG/XRAY/US/CT/[place] [address] IMAGING REPORT Signed PATIENT: CHEVY MILLS V MR#: [id number] : 1945 SEX: F AGE: 79 LOCATION: [facility] ORDER [id number] STATUS: [facility] REPORT#: [id number] SERVICE [id number] REASON: Acute Abdominal Pain ORDERING PHYSICIAN: TRISH MUSE MD PROCEDURE: ABD PEL WO - CT ABDOMEN/PELVIS W/O CONTRAST EXAM: CT Abdomen and Pelvis Without IV contrast CLINICAL HISTORY: Acute Abdominal Pain TECHNIQUE: Axial computed tomography images of the abdomen and pelvis without intravenous contrast. CONTRAST: No IV contrast. COMPARISON: None provided. FINDINGS: LUNG BASES: Dependent airway disease along bilateral lower lobes, presumed to represent basal atelectasis. No pleural effusions are seen. LIVER: Unremarkable. GALLBLADDER AND BILE DUCTS: The gallbladder appears within normal limits. No radioopaque gallstones are seen. No biliary ductal dilatation is evident. PANCREAS: Unremarkable. SPLEEN: Unremarkable. ADRENAL GLANDS: Unremarkable. KIDNEYS, URETERS, AND BLADDER: Surgical clips in the right renal fossa with right post-nephrectomy status. Mild left perinephric fat stranding. There is no hydronephrosis or hydroureter. No urinary calculi are seen. STOMACH AND BOWEL: Colonic diverticulosis. Small hiatal hernia. The distal rectosigmoid colon is distended with fecal matter and the rectum lies 6.0 cm below the pubococcygeal line. No evidence of bowel obstruction. There is mild fat stranding surrounding the distal rectosigmoid colon that may reflect mild, uncomplicated stercoral colitis. 2.4 cm-sized umbilical defect with omental fat herniation. Left-sided small inguinal hernia with fat herniation. PERITONEUM: No free fluid. No free air. LYMPH NODES: No lymphadenopathy is evident. REPRODUCTIVE: The uterus is not well visualized. VASCULATURE: Atherosclerotic changes in the form of eccentric vessel wall calcification in the abdominal aorta and its major branches. No evidence of abdominal aortic aneurysm. BONES: Degenerative changes in the visualized spine in the form of marginal osteophytes and degenerative discs at multiple lumbar levels. Scoliosis of the lumbar spine is noted. Age-indeterminate compression fracture of the superior endplate of L1 vertebral body is noted with no retropulsion. IMPRESSION: 1. No acute intra-abdominal or pelvic pathology. 2. Mild left-sided perinephric fat stranding. Recommend correlation with laboratory parameters. 3. Umbilical hernia. 4. Small left inguinal hernia with fat herniation. 5. Rectal prolapse, with fecal impaction and possible mild uncomplicated stercoral colitis. /[place] DICTATED BY: KARINA GONZALEZ Jr., MD DATE: 03/06/251348 ELECTRONICALLY SIGNED BY: KARINA GONZALEZ Jr., MD DATE: 03/06/251348 [facility] This is a 79-year-old female with ESRD on hemodialysis, hypertension, diabetes mellitus, dementia presenting with acute rectal pain and mild generalized abdominal discomfort. She is hemodynamically stable. Exam notable for mild abdominal discomfort with hemorrhoids and no perianal swelling. No peritoneal signs. CT abdomen pelvis without contrast showed no acute intra-abdominal or pelvic pathology. * Umbilical hernia, Small left inguinal hernia with fat herniation, Rectal prolapse, with fecal impaction and possible mild uncomplicated stercoral colitis. * During the physical examination we could not appreciate rectal prolapse, the prolapse during the imaging could have been transient. in impaction was managed with Fleet enema. * Catheter was inserted which disimpacted the stool. Later we used digital manipulation and removed significant amount of feces. * After that she said she was feeling much better Given the absence of systemic infections, leukocytosis or radiologic abnormality: the symptoms are likely benign. No evidence of acute surgical abdomen. Instruction: * Continue hemodialysis as scheduled. Maintain fluid restriction * Follow up with PCP in 2-3 days * Follow up with Gastroenterology * Monitor for red flags. Bleeding, worsening pain, fever or inability to pass stool * Pain management as needed Disposition: For symptomatic management and close outpatient follow up, as no acute intra- abdominal surgical pathology identified. ED Course Orders Procedure Category Date Status Time Cbc Without LAB 03/06/25 Complete Differential 10:50 Basic Metabolic Panel LAB 03/06/25 Complete 10:50 Ct Abdomen/Pelvis W/O CT 03/06/25 Resulted Contrast 10:50 Urinalysis Profile LAB 03/06/25 Complete 10:50 Fleet Order CPOE 03/06/25 Transmitted 13:04 Vital Signs Date Time Temp Pulse Resp B/P (MAP) Pulse Ox O2 Delivery O2 Flow Rate FiO2 03/06/25 12:15 99.0 64 15 165/65 97 Room Air* 0 21 03/06/25 10:39 99.1 81 20 156/68 99 Room Air 0 Critical Care Note Critical Time: other DX & DISP Disposition: Discharge Departure Impression: Primary Impression: Fecal impaction Additional Impression: Constipation Critical Time: other Condition: Stable Scripts Lactulose (Lactulose) 10 Gram/15 Ml Solution 30 ML PO BID for constipation, #500 ML 0 Refills Prov: BRANDEN JIMENEZ MD 03/06/25 Additional Instructions: Instruction: Continue hemodialysis as scheduled. Maintain fluid restriction Follow up with gastroenterology Follow up with PCP in 2-3 days Monitor for red flags. Bleeding, worsening pain, fever or inability to pass stool Pain management as needed Referrals: NUBIA GALO MD (PCP) NAOMI SANCHES MD Time of Disposition: 15:38 TRISH MUSE MD Mar 06, 2025 10:59 BRANDEN JIMENEZ MD Mar 06, 2025 12:58
[2025-03-06 11:55] LABS: NUCLEATED RED BLOOD CELLS 0.0 % (0.0-0.19); PLATELET COUNT (AUTO) 118.0 K/uL (130-400); RED BLOOD CELL COUNT(AUTO) 3.19 MIL/uL (4.00-5.50); RED CELL DISTRIBUTION WIDTH 12.4 % (11.0-15.5); WHITE BLOOD COUNT (AUTO) 8.3 K/uL (4.8-10.8)
[2025-03-06 12:01] LABS: CREATININE 4.5 mg/dL (0.5-1.0); GLOMERULAR FILTR. RATE CALC 9.0 mL/min (>90); GLUCOSE,RANDOM 178.0 mg/dL (70-105); SODIUM SERUM 142.0 mmol/L (136-145); UREA NITROGEN, BLOOD 38.0 mg/dL (7-18)
--- NOTE | 2025-03-06 12:50 | HMCIMG ---
EXAM: CT Abdomen and Pelvis Without IV contrast CLINICAL HISTORY: Acute Abdominal Pain TECHNIQUE: Axial computed tomography images of the abdomen and pelvis without intravenous contrast. CONTRAST: No IV contrast. COMPARISON: None provided. FINDINGS: LUNG BASES: Dependent airway disease along bilateral lower lobes, presumed to represent basal atelectasis. No pleural effusions are seen. LIVER: Unremarkable. GALLBLADDER AND BILE DUCTS: The gallbladder appears within normal limits. No radioopaque gallstones are seen. No biliary ductal dilatation is evident. PANCREAS: Unremarkable. SPLEEN: Unremarkable. ADRENAL GLANDS: Unremarkable. KIDNEYS, URETERS, AND BLADDER: Surgical clips in the right renal fossa with right post-nephrectomy status. Mild left perinephric fat stranding. There is no hydronephrosis or hydroureter. No urinary calculi are seen. STOMACH AND BOWEL: Colonic diverticulosis. Small hiatal hernia. The distal rectosigmoid colon is distended with fecal matter and the rectum lies 6.0 cm below the pubococcygeal line. No evidence of bowel obstruction. There is mild fat stranding surrounding the distal rectosigmoid colon that may reflect mild, uncomplicated stercoral colitis. 2.4 cm-sized umbilical defect with omental fat herniation. Left-sided small inguinal hernia with fat herniation. PERITONEUM: No free fluid. No free air. LYMPH NODES: No lymphadenopathy is evident. REPRODUCTIVE: The uterus is not well visualized. VASCULATURE: Atherosclerotic changes in the form of eccentric vessel wall calcification in the abdominal aorta and its major branches. No evidence of abdominal aortic aneurysm. BONES: Degenerative changes in the visualized spine in the form of marginal osteophytes and degenerative discs at multiple lumbar levels. Scoliosis of the lumbar spine is noted. Age-indeterminate compression fracture of the superior endplate of L1 vertebral body is noted with no retropulsion. IMPRESSION: 1. No acute intra-abdominal or pelvic pathology. 2. Mild left-sided perinephric fat stranding. Recommend correlation with laboratory parameters. 3. Umbilical hernia. 4. Small left inguinal hernia with fat herniation. 5. Rectal prolapse, with fecal impaction and possible mild uncomplicated stercoral colitis. /[place]
[2025-03-06 13:27] LABS: APPEARANCE,URINE CLEAR (CLEAR); GLUCOSE, URINE (UA) 300 mg/dL (NEGATIVE); LEUKOCYTE ESTERASE ,URINE NEGATIVE Leu/uL (NEGATIVE); NITRATE,URINE NEGATIVE (NEGATIVE); OCCULT BLOOD,URINE NEGATIVE (NEGATIVE)
[2025-03-06 13:40] LABS: ADD UA MICROSCOPIC YES
[2025-03-06 13:43] LABS: SQUAMOUS EPITHELIAL CELL,UR RARE /HPF (0-2)
--- NOTE | 2025-03-06 15:00 | NUR ---
PATIENT TOLERATED FLEET ENEMA AND DIGITAL FECAL INPACT WELL AND WAS ABLE TO GET BROWN HARD STOOL OUT PATIENT RESTING IN BED, CALL LIGHT IN REACH
[2025-03-06] MEDS ORDERED: LACT10SO85 PO (15:39)
[2025-03-06 16:22] VITALS: BP 156/59; PULSE 64; RESP 17; TEMP 98.5; O2SAT 95
== END 2025-03-06 16:20 | disposition home or self-care (01) ==
LOC: EDH 10:37
DX: K56.41 Fecal impaction (principal); K62.89 Other specified diseases of anus and rectum; I12.0 Hypertensive chronic kidney disease with stage 5 chronic kidney disease or end stage renal disease; E11.22 Type 2 diabetes mellitus with diabetic chronic kidney disease; N18.6 End stage renal disease; E78.00 Pure hypercholesterolemia, unspecified; F03.90 Unspecified dementia, unspecified severity, without behavioral disturbance, psychotic disturbance, mood disturbance, and anxiety; Z88.8 Allergy status to other drugs, medicaments and biological substances; Z79.1 Long term (current) use of non-steroidal anti-inflammatories (NSAID); Z79.899 Other long term (current) drug therapy; Z90.5 Acquired absence of kidney; Z90.710 Acquired absence of both cervix and uterus; Z95.5 Presence of coronary angioplasty implant and graft; Z99.2 Dependence on renal dialysis
CPT/HCPCS: 36415; 74176; 80048; 81001; 85027; 99284